=== PATIENT | female | born 1950 | race Two or more races ===

== ENCOUNTER 2020-10-11 18:02 | Emergency (ER) | payer MEDICAID ==
[~2020-10-11] VITALS: Ht 152.4 cm; Wt 64.0 kg
--- NOTE | 2020-10-11 18:10 | NUR ---
BIB FAMILY FEELING WEAK W/ UPPER BACK PAIN X 15 DAYS. PATIENT A/OX4, [place] SPEAKING. NO DISTRESS NOTED. VERBALLY RESPONSIVE. NO S.SX OF STROKE. ATTACHED TO THE [employer].
[2020-10-11] MEDS ORDERED: LOSA50TA39 PO (18:40)
[2020-10-11] MEDS ORDERED: LORA-258 PO (18:40)
[2020-10-11] MEDS ORDERED: CYCL10TA9 PO (18:40)
[2020-10-11] MEDS ORDERED: OMEP20CA15 PO (18:40)
--- NOTE | 2020-10-11 18:55 | NUR ---
Ciaran okeefe in [facility] - 10/11/20 at 1907 by KAVIN BLOOD CULTURES DRAWN AND SENT TO LAB.
[2020-10-11] MEDS ORDERED: VANCOMYCIN 1 GM in IV D5W 250 ML IV ONE (19:00)
[2020-10-11] MEDS ORDERED: PIPERACILLIN /TAZOBACTAM 3.375 G in IV D5W 50 ML IV ONE (19:00)
--- NOTE | 2020-10-11 19:07 | NUR ---
BLOOD FOR BLOOD CULTURES OBTAINED PRIOR START OF ANTIBIOTICS.
--- NOTE | 2020-10-11 19:28 | NUR ---
COVID PCR COLLECTED AND SENT TO THE LAB.
[2020-10-11 19:44] LABS: CALCIUM, SERUM 8.8 mg/dL (8.5-10.1); CARBON DIOXIDE 28 mmol/L (21-32); CHLORIDE 101 mmol/L (98-107); CREATININE 0.9 mg/dL (0.6-1.3); GLUCOSE 106 mg/dL (74-106); POTASSIUM 4.3 mmol/L (3.5-5.1); SODIUM SERUM 138 mmol/L (136-145); UREA NITROGEN, BLOOD 43 mg/dL (7-18)
[2020-10-11 19:50] LABS: ALANINE AMINOTRANSFERASE 29 U/L (12-78); ALBUMIN 3.5 g/dL (3.4-5.0); ALKALINE PHOSPHATASE 76 U/L (46-116); ASPARTATE AMINOTRANSFERASE 17 U/L (15-37); BILIRUBIN,DIRECT 0.1 mg/dL (0.0-0.2); BILIRUBIN,TOTAL 0.1 mg/dL (0.2-1.0); TOTAL PROTEIN, SERUM 7.7 g/dL (6.4-8.2)
--- NOTE | 2020-10-11 20:13 | NUR ---
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
[2020-10-11 20:18] LABS: BASOPHILS # (AUTO) 0.1 /CMM (0.0-0.2); BASOPHILS % (AUTO) 0.7 % (0.0-2.0); EOSINOPHILS % (AUTO) 1.6 % (0.0-6.0); HEMATOCRIT 38 % (33-45); HEMOGLOBIN 12.7 g/dL (11.5-14.8); LYMPHOCYTES # (AUTO) 3.1 /CMM (0.8-4.8); LYMPHOCYTES % (AUTO) 37.7 % (20.0-44.0); MEAN CORPUSCULAR HGB CONC 34 g/dl (31.0-36.0); MEAN CORPUSCULAR VOLUME 88 fL (82-100); MONOCYTES # (AUTO) 0.5 /CMM (0.1-1.30); MONOCYTES % (AUTO) 6.3 % (2.0-12.0); NEUTROPHILS # (AUTO) 4.4 /CMM (1.8-8.9); NEUTROPHILS % (AUTO) 53.7 % (43.0-81.0); PLATELET COUNT (AUTO) 617 /CMM (150-450); WHITE BLOOD COUNT (AUTO) 8.3 K/uL (4.3-11.0)
--- NOTE | 2020-10-11 20:24 | NUR ---
SPOKE TO CM: SHY EDUARDO [facility]. WILL CALL BACK WHEN CBC RESULTED
[2020-10-11] MEDS ORDERED: PRED20TA PO (20:45)
[2020-10-11] MEDS ORDERED: AZIT250T13 PO (20:45)
--- NOTE | 2020-10-11 21:36 | NUR ---
IV removed. Catheter intact and site benign. Pressure and 4x4 applied to site. No bleeding noted.
--- NOTE | 2020-10-11 21:36 | NUR ---
Patient discharged to home in stable condition. Written and verbal after care instructions given. Patient verbalizes understanding of instruction.
[2020-10-11 22:36] VITALS: BP 126/78
== END 2020-10-11 21:42 | disposition home or self-care (01) ==
LOC: ER 18:11
DX: J18.9 Pneumonia, unspecified organism (principal); Z20.822 Contact with and (suspected) exposure to COVID-19
CPT/HCPCS: 36415; 71045; 80048; 80076; 83605; 83880; 84145; 84484; 85025; 87040 ×2; 87081; 87426; 93005; 96365; 96367; 99285; C9803 ×2; J2543; J3370; J7060; U0003

== ENCOUNTER 2021-05-01 18:21 | Emergency (ER) | payer MEDICAID ==
[~2021-05-01] VITALS: Ht 165.1 cm; Wt 54.0 kg
[~2021-05-01 18:21] MED LIST: AZIT250T13 PO; CYCL10TA9 PO; LORA-258 PO; LOSA50TA39 PO; OMEP20CA15 PO; PRED20TA PO
--- NOTE | 2021-05-01 18:43 | NUR ---
URINE COLLECTED AND SENT TO LAB
--- NOTE | 2021-05-01 19:01 | NUR ---
TAKEN TO CT
[2021-05-01 19:04] LABS: BILIRUBIN,URINE NEGATIVE (NEGATIVE); COLOR,URINE YELLOW (YELLOW); LEUKOCYTE ESTERASE ,URINE NEGATIVE (NEGATIVE); NITRITE, URINE NEGATIVE (NEGATIVE); PROTEIN,URINE NEGATIVE (NEGATIVE); UGLUCOSE NEGATIVE (NEGATIVE); UROBILINOGEN,URINE 0.2 EU/dL (0.2)
[2021-05-01 19:04] LABS: RED BLOOD CELL COUNT(AUTO) 4.68 MIL/uL (4.0-5.2)
[2021-05-01 19:17] LABS: BACTERIA,URINE Few /HPF (None Seen); WBC,URINE 0-2 /HPF (0-3)
[2021-05-01 19:18] LABS: SQUAMOUS EPITHELIAL CELL,UR Few /HPF (None Seen)
[2021-05-01 19:21] LABS: ALBUMIN 3.6 g/dL (3.4-5.0); BILIRUBIN,DIRECT 0.1 mg/dL (0.0-0.2); BILIRUBIN,TOTAL 0.2 mg/dL (0.2-1.0); TOTAL PROTEIN, SERUM 7.5 g/dL (6.4-8.2)
[2021-05-01 19:35] LABS: BASOPHILS # (AUTO) 0.1 K/uL (0.0-0.2); EOSINOPHILS % (AUTO) 1.8 % (0.0-6.0); HEMATOCRIT 42 % (33-45); HEMOGLOBIN 13.9 g/dL (11.5-14.8); LYMPHOCYTES # (AUTO) 2.6 K/uL (0.8-4.8); LYMPHOCYTES % (AUTO) 43.2 % (20.0-44.0); MEAN CORPUSCULAR HGB CONC 33 g/dl (31.0-36.0); MEAN CORPUSCULAR VOLUME 90 fL (82-100); MONOCYTES # (AUTO) 0.4 K/uL (0.1-1.30); MONOCYTES % (AUTO) 6.7 % (2.0-12.0); NEUTROPHILS # (AUTO) 2.8 K/uL (1.8-8.9); NEUTROPHILS % (AUTO) 47.3 % (43.0-81.0); PLATELET COUNT (AUTO) 437 K/uL (150-450)
[2021-05-01 19:37] LABS: CREATININE 0.7 mg/dL (0.6-1.3); POTASSIUM 3.4 mmol/L (3.5-5.1)
[2021-05-01 20:08] VITALS: BP 138/79
--- NOTE | 2021-05-01 20:08 | NUR ---
Patient discharged to home in stable condition. Written and verbal after care instructions given. Patient verbalizes understanding of instruction.
== END 2021-05-01 20:09 | disposition home or self-care (01) ==
LOC: ER 18:26
DX: R10.32 Left lower quadrant pain (principal); R31.9 Hematuria, unspecified; Z79.899 Other long term (current) drug therapy
CPT/HCPCS: 36415; 80048-TC; 80076-TC; 81001; 83690-TC; 85025-TC

== ENCOUNTER 2022-10-02 13:38 | Emergency (ER) | payer MEDICARE, OTHER ==
[~2022-10-02] VITALS: Ht 152.4 cm; Wt 53.5 kg
--- NOTE | 2022-10-02 13:50 | NUR ---
BIB SON C/O HEAD AND BACK OF NECK PAIN X 3 DAYS, TEMPORARY RELIEF WITH [facility]. AMBULATORY, PLACED IN BED, AAOX4, IN PAIN 8/10 PS.
[2022-10-02] MEDS ORDERED: diphenhydrAMINE HCL 50 MG/ML VIAL ONE (14:54)
[2022-10-02] MEDS ORDERED: PROCHLORPERAZINE EDISYLATE 10 MG/2 ML VIAL ONE (14:55)
[2022-10-02] MEDS ORDERED: PROCHLORPERAZINE EDISYLATE 10 MG/2 ML VIAL IVP ONE (15:00)
[2022-10-02] MEDS ORDERED: diphenhydrAMINE HCL 50 MG/ML VIAL IV ONE (15:00)
--- NOTE | 2022-10-02 15:22 | NUR ---
CERTIFIED MEDICAL DOSIMETRIST. AT BEDSIDE
--- NOTE | 2022-10-02 15:45 | NUR ---
PATIENT TAKEN TO CT VIA FLAKITA
[2022-10-02 15:57] LABS: BASOPHILS # (AUTO) 0.2 K/uL (0.0-0.2); BASOPHILS % (AUTO) 3.3 % (0.0-2.0); HEMATOCRIT 40 % (33-45); HEMOGLOBIN 13.3 g/dL (11.5-14.8); LYMPHOCYTES # (AUTO) 1.7 K/uL (0.8-4.8); LYMPHOCYTES % (AUTO) 24.9 % (20.0-44.0); MEAN CORPUSCULAR HGB CONC 33 g/dl (31.0-36.0); MEAN CORPUSCULAR VOLUME 87 fL (82-100); MONOCYTES # (AUTO) 0.5 K/uL (0.1-1.30); MONOCYTES % (AUTO) 7.2 % (2.0-12.0); NEUTROPHILS # (AUTO) 4.5 K/uL (1.8-8.9); NEUTROPHILS % (AUTO) 63.6 % (43.0-81.0); PLATELET COUNT (AUTO) 462 K/uL (150-450); RED BLOOD CELL COUNT(AUTO) 4.59 MIL/uL (4.0-5.2)
[2022-10-02 16:20] LABS: CALCIUM, SERUM 9.3 mg/dL (8.5-10.1); CREATININE 0.7 mg/dL (0.6-1.3); POTASSIUM 3.8 mmol/L (3.5-5.1)
[2022-10-02] MEDS ORDERED: KETOROLAC TROMETHAMINE INJ 30 MG/ML VIAL IV ONE ×2 (17:00→17:30)
[2022-10-02] MEDS ORDERED: KETOROLAC TROMETHAMINE 15 MG/ML VIAL ONE (17:02)
[2022-10-02] MEDS ORDERED: CYCL5TAB PO (17:19)
--- NOTE | 2022-10-02 17:30 | NUR ---
IV removed. Catheter intact and site benign. Pressure and 4x4 applied to site. No bleeding noted.Patient discharged to home in stable condition. Written and verbal after care instructions given. Patient AND SON verbalizes understanding of instruction.
[2022-10-02 17:41] VITALS: BP 140/80
== END 2022-10-02 17:30 | disposition home or self-care (01) ==
LOC: ER 13:50
DX: S16.1XXA Strain of muscle, fascia and tendon at neck level, initial encounter (principal); R50.9 Fever, unspecified; M43.6 Torticollis; Z79.899 Other long term (current) drug therapy; X58.XXXA Exposure to other specified factors, initial encounter; Y93.89 Activity, other specified; Y92.89 Other specified places as the place of occurrence of the external cause; Y99.8 Other external cause status
CPT/HCPCS: 99285; 72125; 96374; 96375; 70450; 85025; 80048; 36415; 85730; J0780; J1200; J1885

== ENCOUNTER 2024-11-23 19:54 | Emergency (ER) | payer MEDICARE, OTHER ==
[~2024-11-23] VITALS: Ht 157.5 cm; Wt 51.7 kg
[~2024-11-23 19:54] MED LIST changes: +CYCL5TAB PO
[2024-11-23] MEDS ORDERED: CEPH-570 PO (20:30)
[2024-11-23] MEDS ORDERED: TDAP [DIPH/PERTUSSIS/TET] 0.5 ML VIAL IM ONE (20:31)
[2024-11-23] MEDS: TDAP [DIPH/PERTUSSIS/TET] 0.5 ML VIAL IM ONE (20:34)
[2024-11-23 20:45] VITALS: BP 121/74; TEMP 97.7; O2SAT 98
== END 2024-11-23 20:48 | disposition home or self-care (01) ==
LOC: ER 19:58
DX: S61.411A Laceration without foreign body of right hand, initial encounter (principal); Z79.52 Long term (current) use of systemic steroids; Z79.899 Other long term (current) drug therapy; W26.9XXA Contact with unspecified sharp object(s), initial encounter; Y93.89 Activity, other specified; Y92.89 Other specified places as the place of occurrence of the external cause; Y99.8 Other external cause status
CPT/HCPCS: 90715